=== PATIENT | female | born 1940 | race African-American/Black ===

== ENCOUNTER 2016-10-12 13:52 | Outpatient (CLI) | payer MEDICARE, OTHER ==
[2014-01-26 15:06] VITALS: BP 138/84
== END 2016-10-12 13:53 ==
LOC: CARD 13:52
PROVIDERS: ATTEND Internal Medicine Cardiovascular Disease
DX: I10 Essential (primary) hypertension (principal)
CPT/HCPCS: G0463

== ENCOUNTER 2016-11-06 11:09 | Emergency (ER) | payer MEDICARE, OTHER ==
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
[2016-11-06 12:03] LABS: BASOPHILS % 0.2 (0.0-1.5); EOSINOPHILS % 3.2 % (0.0-6.8); LYMPHOCYTES # 0.7 # k/uL (0.6-4.0); MEAN CORPUSCULAR HEMOGLOBIN 27.9 pg (28.0-34.0); MONOCYTES # 0.1 # k/uL (0.0-0.9); MONOCYTES % 5.8 % (0.0-11.0); NEUTROPHILS # 1.2 # k/uL (1.4-7.7)
[2016-11-06 12:04] LABS: APPEARANCE,URINE Cloudy (CLEAR); COLOR,URINE Yellow (YELLOW); OCCULT BLOOD,URINE Trace-intact (NEGATIVE); PH URINE 8.5 (5.0 - 8.0); UROBILINOGEN URINE 0.2 Eu (0.2-1.0)
[2016-11-06 13:07] VITALS: BP 168/86
== END 2016-11-06 13:05 | disposition home or self-care (01) ==
LOC: ED 11:09
DX: N30.00 Acute cystitis without hematuria (principal); I12.9 Hypertensive chronic kidney disease with stage 1 through stage 4 chronic kidney disease, or unspecified chronic kidney disease; E11.22 Type 2 diabetes mellitus with diabetic chronic kidney disease; N18.9 Chronic kidney disease, unspecified
CPT/HCPCS: 80053; 81002; 85025; 87088; 87186; 87400; 99283; 99284

== ENCOUNTER 2016-11-23 09:22 | Outpatient (CLI) | payer MEDICARE, OTHER ==
[2016-11-23 09:44] LABS: BASOPHILS % 0.2 (0.0-1.5); EOSINOPHILS % 4.3 % (0.0-6.8); LYMPHOCYTES # 0.8 # k/uL (0.6-4.0); MEAN CORPUSCULAR HEMOGLOBIN 28.5 pg (28.0-34.0); MONOCYTES # 0.1 # k/uL (0.0-0.9); MONOCYTES % 4.7 % (0.0-11.0); NEUTROPHILS # 1.3 # k/uL (1.4-7.7)
[2016-11-23 16:40] LABS: TOTAL PROTEIN 5.1 g/dL (6.0-8.5)
== END 2016-11-23 09:23 ==
LOC: LAB 09:22
PROVIDERS: ATTEND Internal Medicine Gastroenterology
DX: Z51.81 Encounter for therapeutic drug level monitoring (principal); Z79.899 Other long term (current) drug therapy; Z94.4 Liver transplant status
CPT/HCPCS: 36415; 80053; 80197; 82977; 85025

== ENCOUNTER 2017-02-04 09:51 | Emergency (ER) | payer MEDICARE, OTHER ==
[2017-02-04 10:15] LABS: BASOPHILS % 0.6 (0.0-1.5); EOSINOPHILS % 4.1 % (0.0-6.8); MEAN CORPUSCULAR HEMOGLOBIN 29.1 pg (28.0-34.0); MEAN CORPUSCULAR VOLUME 92.1 fl (80.0-100.0); MONOCYTES % 3.7 % (0.0-11.0); NEUTROPHILS # 2.3 # k/uL (1.4-7.7)
[2017-02-04] MEDS ORDERED: 0.9 % SODIUM CHLORIDE 1,000 ML IV ONE (10:23)
[2017-02-04 10:29] LABS: eGFR (African) 14; eGFR (Non-African) 11
[2017-02-04] MEDS ORDERED: 0.9 % SODIUM CHLORIDE 1,000 ML IV SCH (10:30)
[2017-02-04 11:03] LABS: APPEARANCE,URINE Clear (CLEAR); COLOR,URINE Yellow (YELLOW); OCCULT BLOOD,URINE 1+ (NEGATIVE); PH URINE 8.5 (5.0 - 8.0); UROBILINOGEN URINE 0.2 Eu (0.2-1.0)
[2017-02-04] MEDS ORDERED: FLUMAZENIL 0.1 MG/ML 5ML VIAL IV ONE (11:04)
[2017-02-04] MEDS ORDERED: NALOXONE HCL 2 MG/2 ML IVP ONE (11:04)
[2017-02-04 11:08] LABS: AMPHETAMINE NEGATIVE ng/mL (<1000); BARBITURATES NEGATIVE ng/mL (<300); CANNABINOIDS NEGATIVE ng/mL (<50); COCAINE NEGATIVE ng/mL (<150); METHAMPHETAMINE NEGATIVE ng/mL (<1000); METHYLENEDIOXYMETHAMPHETAMINE NEGATIVE ng/mL (<500)
[2017-02-04 11:14] LABS: YEAST,URINE FEW (NEGATIVE)
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
[2017-02-04 14:37] VITALS: BP 177/89
--- NOTE | 2017-02-04 15:33 | Diagnostic Imaging Report ---
RUPERT MARTINEZ [facility] [id number] [facility] [address] [place], [place]. [address] Report Submission Date: Feb 04, 2017 10:51:01 AM CDT Patient Study Name: MARITZA HOWELL Date: Feb 04, 2017 10:18:34 AM CDT Modality Type: CT\SR Gender: F Description: CT BRAIN W/O CONTRAST : 42 Institution: [facility] Physician: RUPERT MARTINEZ CT brain noncontrast Date of study: 04 February 2017 CLINICAL HISTORY: ALTERED MENTAL STATUS, FEVER, UNRESPONSIVE, UNABLE TO FOLLOW BREATHING INSTRUCTIONS (Hx) / ALTERED MENTAL STATUS (DICOM Hx) TECHNIQUE: 5 mm contiguous axial images of the brain, noncontrast. FINDINGS: There is no evidence of intracranial mass effect, hemorrhage, or acute hydrocephalus. The lateral ventricles are symmetrical and the 4th ventricle is midline without shift. No acute brain parenchymal changes or extra-axial fluid collections are identified. Cerebral and cerebellar atrophy are present. There is white matter gliosis. The ventricles are mildly enlarged. The calvarium is intact. Multi sinus mucosal thickening is present in the paranasal sinuses. The mastoid air cells are clear. There is intracranial atherosclerotic vascular calcification IMPRESSION: No acute intracranial process. Cerebral atrophy and white matter gliosis multi sinus mucosal thickening Electronically signed on Feb 04, 2017 10:51:01 AM CDT by: Abdoul EAST
--- NOTE | 2017-02-04 15:34 | Diagnostic Imaging Report ---
RUPERT MARTINEZ [facility] [address] [facility] [address] [place], [place]. [address] Report Submission Date: Feb 04, 2017 10:53:52 AM CDT Patient Study Name: MARITZA HOWELL Date: Feb 04, 2017 10:22:33 AM CDT Modality Type: CT\SR Gender: F Description: CT CHEST W/O CONTRAST : 41 Institution: [facility] Physician: RUPERT MARTINEZ CT chest non contrast Date of study: 04 February 2017 CLINICAL HISTORY: FEVER, ALTERED MENTAL STATUS, UNRESPONSIVE, UNABLE TO FOLLOW BREATHING INSTRUCTIONS (Hx) / FEVER (DICOM Hx) TECHNIQUE: 5 mm contiguous axial images of the chest. FINDINGS: The dialysis catheter is in place. Aortic and great vessels calcification is present. There is coronary artery calcification. Calcified right hilar lymph nodes are present. A small left pleural effusion is present. New. The upper abdomen shows ascites and a cirrhotic liver. Varices are present in the upper abdomen. Anasarca changes are noted in the subcutaneous fat. A small pericardial effusion is present measuring up to 15 mm. Gastric wall appears thickened. Lung windows show a lingular and left basilar atelectasis. A right upper lobe linear infiltrate or atelectasis is present. IMPRESSION: Bibasilar atelectasis greater on the left and right Lingular atelectasis or infiltrate. Right upper lobe infiltrate or atelectasis with a small amount of left upper lobe infiltrate or atelectasis abutting the oblique fissure. Dialysis catheter tip in the right atrium Ascites ,varices and cirrhotic liver Anasarca Thickening gastric wall Extensive vascular calcification including coronary artery calcifications. There is cardiomegaly and a pericardial effusion Electronically signed on Feb 04, 2017 10:53:52 AM CDT by: Abdoul EAST
[2017-02-05 05:50] LABS: ABG BASE EXCESS 3.5 (-2 - +2); ABG PH 7.58 (7.35-7.45)
== END 2017-02-04 14:15 | disposition short-term general hospital (02) ==
LOC: ED 09:51
DX: K74.60 Unspecified cirrhosis of liver (principal)
CPT/HCPCS: 70450; 71250; 80053; 81002; 84484; 85025; 85610; 85730; 87086; G0480; G0481; J7030; 36600; 80320; 80377; 82803; 96361; 96374; 96375; 99284

== ENCOUNTER 2017-02-21 03:38 | Emergency (ER) | payer MEDICARE, OTHER ==
--- NOTE | 2017-02-21 03:48 | ED Physician Documentation ---
General Adult - HISTORIAN Historian: child (daughter) - HPI Stated Complaint: found unresponsive Chief Complaint: General Adult Additional Information: Decreasing responsiveness this afternoon and evening. Last had "normal" conversation with daughter at about 1630. Discharged from [facility] for liver failure and bleeding esophageal varices on 02/17. Daughter says she requested patient be taken to [facility], but EMS told her patient should be taken to [facility] as a "pit stop" to have her ammonia level checked. FSG 181 per EMS. - ROS CONST: no problems - PAST HX Past History: hypertension, other (CRF and ESRF, DM, liver failure, delirium. Dialysis.) Other History: other (IDDM) Surgeries/Procedures: other (liver transplant 1999) Allergies/Adverse Reactions: Allergies Allergy/AdvReac Type Severity Reaction Status Date / Time ondansetron Allergy Severe Drowsiness Verified 02/21/17 03:48 Home Medications: Ambulatory Orders Medication Instructions Recorded Ciprofloxacin HCl [Cipro] 250 mg PO D #5 tablet 11/06/16 - SOCIAL HX Smoking History: non-smoker - FAMILY HX Family History: No - VITAL SIGNS Vital Signs: Vital Signs Temp Pulse Resp BP Pulse Ox 177/89 02/04/17 14:15 - REVIEWED ASSESSMENTS Nursing Assessment Reviewed: Yes Vitals Reviewed: Yes Progress - Progress Progress: CT head without contrast History: Unresponsive, mental status change Technique: Images through the brain were obtained without contrast. Findings: No mass, midline shift, obstructive hydrocephalus or acute intracranial hemorrhage is present. The ventricles are normal. There is lucency in the periventricular white matter, consistent with microvascular ischemic change. No extra axial fluid collection is identified. Since 04 February 2017, right maxillary sinus disease has improved. There is now mucous membrane thickening in the left sphenoid sinus. Impression: No acute intracranial process. Electronically signed on February 21, 2017 4:30:59 AM CDT by: Willi Gutiérrez, AP portable History: Mental status change, unresponsive Findings: Right internal jugular dual lumen hemodialysis catheter ends in the right atrium. There is moderate pulmonary vascular congestion. The heart is enlarged. Left pleural effusion is present. Small right effusion is suspected. There is calcification in the thoracic aorta. Left lower lobe atelectasis is present. Impression: 1. Cardiomegaly and pulmonary vascular congestion. 2. Left pleural effusion and left lower lobe atelectasis. 3. Aortic atherosclerosis. Electronically signed on February 21, 2017 4:39:28 AM CDT by: Willi Viramontes [id number], spoke with Dr. Bellamy, [facility], who refuses to take pt unless she is intubated. (Pt has GCS 5-7, but is stable). 18, Spoke with Dr. Acuña, intrensivist, who cared for pt last week, and accepts her for transfer to ICU. ED Results Lab/Radiology - Orders Orders: ED Orders Category Date Time Status Further Nursing Orders 1T Care 02/21/17 03:40 Ordered CHEST 1 VIEW [RAD] Stat Exams 02/21/[address] BRAIN W/O CONTRAST Stat Exams 02/21/17 Ordered AMMONIA Routine Lab 02/21/17 Ordered CBC/PLATELET/DIFF Routine Lab 02/21/17 Ordered CMP Routine Lab 02/21/17 Ordered PT-INR Routine Lab 02/21/17 Ordered URINALYSIS Routine Lab 02/21/17 Ordered General Adult Physical Exam - PHYSICAL EXAM GENERAL APPEARANCE: moderate distress (non responsive. occasional spontaneous movements.) EENT: other (pupils 3 mm; arcus senilis) NECK: normal inspection, other (holds neck extended somewhat) RESPIRATORY: no resp distress, breath sounds normal CVS: reg rate & rhythm, heart sounds normal ABDOMEN: soft, normal bowel sounds RECTAL: deferred BACK: normal inspection SKIN: warm/dry, normal color (except extensive bruising right medial thigh and lower leg) EXTREMITIES: edema (R>L foot and ankle) NEURO: motor nml Discharge Clincal Impression: Mental status change Referrals: Blade Locke MD [Primary Care Provider] - 2 Days Home Medications: Ambulatory Orders Ciprofloxacin HCl [Cipro] 250 mg PO D #5 tablet 11/06/16 Condition: Critical Disposition: 02 XFER SHT-TRM HOSP Decision to Admit: NO Decision Time: 05:17
[2017-02-21 04:04] LABS: eGFR (African) 13; eGFR (Non-African) 11
[2017-02-21 04:42] LABS: BASOPHILS % 0.2 (0.0-1.5); EOSINOPHILS % 4.4 % (0.0-6.8); MEAN CORPUSCULAR HEMOGLOBIN 30.4 pg (28.0-34.0); MONOCYTES % 7.4 % (0.0-11.0); NEUTROPHILS # 2.8 # k/uL (1.4-7.7)
[2017-02-21] MEDS ORDERED: 0.9 % SODIUM CHLORIDE 1,000 ML IV ONE (05:18)
[2017-02-21] MEDS ORDERED: 0.9 % SODIUM CHLORIDE 500 ML IV ONE (05:29)
[2017-02-21 05:56] VITALS: BP 147/73
[2017-02-21 06:06] LABS: APPEARANCE,URINE CLEAR (CLEAR); COLOR,URINE YELLOW (YELLOW)
[2017-02-21 06:07] LABS: OCCULT BLOOD,URINE 1+ (NEGATIVE); PH URINE 7.5 (5.0 - 8.0); UROBILINOGEN URINE 0.2 Eu (0.2-1.0)
--- NOTE | 2017-02-21 06:40 | Diagnostic Imaging Report ---
KAMRYN NEGRON [facility] [address] [facility] [address] [place] [address]. [id number] Report Submission Date: February 21, 2017 4:30:59 AM CDT Patient Study Name: MARITZA HOWELL Date: February 21, 2017 4:04:28 AM CDT Modality Type: CT\SR Gender: F Description: CT BRAIN W/O CONTRAST : 41 Institution: [facility] Physician: KAMRYN NEGRON CT head without contrast History: Unresponsive, mental status change Technique: Images through the brain were obtained without contrast. Findings: No mass, midline shift, obstructive hydrocephalus or acute intracranial hemorrhage is present. The ventricles are normal. There is lucency in the periventricular white matter, consistent with microvascular ischemic change. No extra axial fluid collection is identified. Since 04 February 2017, right maxillary sinus disease has improved. There is now mucous membrane thickening in the left sphenoid sinus. Impression: No acute intracranial process. Electronically signed on February 21, 2017 4:30:59 AM CDT by: Willi EAST
--- NOTE | 2017-02-21 06:40 | Diagnostic Imaging Report ---
KAMRYN NEGRON - SHAYNA [facility] [address] [facility] [address] [address] Report Submission Date: February 21, 2017 4:39:28 AM CDT Patient Study Name: MARITZA HOWELL Date: February 21, 2017 4:28:49 AM CDT Modality Type: CR Gender: F Description: CHEST : 41 Institution: [facility] Physician: KAMRYN NEGRON - SHAYNA Chest, AP portable History: Mental status change, unresponsive Findings: Right internal jugular dual lumen hemodialysis catheter ends in the right atrium. There is moderate pulmonary vascular congestion. The heart is enlarged. Left pleural effusion is present. Small right effusion is suspected. There is calcification in the thoracic aorta. Left lower lobe atelectasis is present. Impression: 1. Cardiomegaly and pulmonary vascular congestion. 2. Left pleural effusion and left lower lobe atelectasis. 3. Aortic atherosclerosis. Electronically signed on February 21, 2017 4:39:28 AM CDT by: Willi EAST
== END 2017-02-21 05:35 | disposition short-term general hospital (02) ==
LOC: ED 03:38
DX: R41.82 Altered mental status, unspecified (principal); N18.9 Chronic kidney disease, unspecified; Z99.2 Dependence on renal dialysis
CPT/HCPCS: 51702; 70450; 71010; 80053; 81002; 82140; 85025; 85610; J7030; J7060; 96361; 99284; S1016

== ENCOUNTER 2017-03-03 09:35 | Outpatient (CLI) | payer MEDICARE, OTHER ==
[2017-03-03 10:01] LABS: MEAN CORPUSCULAR HEMOGLOBIN 31.2 pg (28.0-34.0); MEAN CORPUSCULAR VOLUME 94.4 fl (80.0-100.0)
[2017-03-03 10:11] LABS: eGFR (African) 8; eGFR (Non-African) 7
[2017-03-03 10:33] LABS: SEGMENTED NEUTROPHILS % 61 % (39-79)
[2017-03-03 10:34] LABS: ANISOCYTOSIS 1+ (NEGATIVE); EOSINOPHILS % 2 % (0-7); MONOCYTES % 5 % (0-11)
== END 2017-03-03 09:36 ==
LOC: LAB 09:35
PROVIDERS: ATTEND Family Medicine
DX: N18.6 End stage renal disease (principal)
CPT/HCPCS: 80053; 82140; 85025

== ENCOUNTER 2017-03-19 11:48 | Outpatient (CLI) | payer MEDICARE, OTHER ==
[2017-03-19 12:21] LABS: eGFR (African) 7; eGFR (Non-African) 6
== END 2017-03-19 11:50 ==
LOC: LAB 11:48
PROVIDERS: ATTEND Internal Medicine Nephrology
DX: N18.9 Chronic kidney disease, unspecified (principal)
CPT/HCPCS: 80053